=== PATIENT | female | born 1970 | race Caucasian/White ===

== ENCOUNTER 2016-08-05 13:00 | Inpatient (IN) | payer OTHER, MEDICAID ==
[~2016-08-05] VITALS: Ht 162.6 cm; Wt 62.8 kg
[2016-08-05 13:06] VITALS: BP 127/78; PULSE 87; RESP 20; O2SAT 100
--- NOTE | 2016-08-05 13:29 | ED.REPORT ---
HPI-Chest Pain 40 and Over Date of Service Aug 05, 2016 ED Provider: Heron Haynes PA-C Erin is a 45-year-old female with a history of TX, stent placement, diabetes , gastroparesis and chronic pain syndrome who presents to emergency department with left-sided chest pain. She states that the pain began suddenly approximately 15 minutes ago, is stabbing, waxes and wanes, is relieved by rest and does not radiate. She indicates that the pain is behind her left breast, and states is aggravated by taking a deep breath. She has a recent history of a left chest wall contusion approximately 3 weeks ago, which was evaluated at [facility]. She reports that she has been having increasing trouble with her gastroparesis and was in the process of eating of radioactive sandwich for diagnostic imaging When the pain started. She has a history of TX in 2006, and placement of one stent. Current episode does not feel like her previous TX. She reports that she is taking anticoagulants as instructed. She reports it history of L5 neuropathy including leg weakness and numbness that is stable at baseline. Denies cough, active cancer, exogenous oxygen, recent trauma, recent surgery, history of blood clots, leg swelling. Nursing Notes Stated Complaint: CHEST PAIN Chief Complaint: Chest Pain Nursing Notes Reviewed: Yes Allergies: Coded Allergies: Sulfa (Sulfonamide Antibiotics) (Verified Allergy, Unknown, Rash, 08/05/16) codeine (Verified Adverse Reaction, Severe, GI UPSET, 08/05/16) General Time Seen by MD: 13:14 Chief Complaint Chest pain Hx Obtained From: Patient Arrived By: Walk-in Sudden in Onset?: Yes Location: : Substernal Quality: Painful, Pleuritic, Sharp, Stabbing Radiation: : Does not radiate Severity: Current: Moderate Severity: Maximum: Moderate Recent Healthcare: Previous diagnosis Similar Sx Previous: Yes Past Medical History Past Medical History Ischemic cardiomyopathy Gastroparesis, hypertension TX 2007 s/p stent placement diabetes mellitus, Chronic lumbar back pain lower limb neuropathy Osteoarthritis Past Surgical History Cataract Cardiac stenting Smoking History Smoker Current Status UNK Social History Alcohol Use: "Social" Drug Use: THC Ambulatory Status Independent Review of Systems General: Denies fever, chills, malaise. HEENT: Admits congestion, denies headache, sore throat. Respiratory: Admits dyspnea, denies cough, shortness of breath, wheezing. Cardiovascular: Admits chest pain Gastrointestinal: Admits abdominal pain. Denies vomiting, diarrhea Genitourinary: Denies frequency, urgency, dysuria, hematuria. Otherwise as noted in HPI. Complete sys rev & neg: except as marked. Physical Exam General: Mildly ill appearing, well developed, well nourished, moderatel distress. Head: Atraumatic, normocephalic. Eyes: No scleral icterus or injection. No discharge. Vision grossly intact. ENT: Voice clear, hearing grossly intact. Respiratory: Regular rate and rhythm. Breath sounds present, clear to auscultation and equal bilaterally. Cardiovascular: Regular rate and rhythm, without murmur, gallop or rub. No pedal edema. Gastrointestinal: Abdomen flat with mild global tenderness without guarding or rebound. Bowel sounds normoactive. Skin: Warm and dry. Neurological: Grossly nonfocal. Psychological: Alert and oriented. Speech appropriate, linear and logical. Behavior appropriate. Initial Vital Signs Vital Signs (First) Date Time Temp Pulse Resp B/P Pulse Ox O2 Delivery O2 Flow Rate FiO2 08/05/16 13:06 36.4 87 20 127/78 100 Room Air Initial VS: Reviewed, Vital signs normal Interpretation & Diagnostics Lab Results Interpretation Result Diagram: 08/05/16 1342 08/05/16 1342 Test 08/05/16 13:42 White Blood Count 8.4th/mm3 (3.8-10.1) Red Blood Count 3.82mil/mm3 (3.90-5.20) Hemoglobin 11.7g/dL (12.0-15.6) Hematocrit 34.2% (35.0-46.0) Mean Corpuscular Volume 89.5fL (81-100) Mean Corpuscular Hemoglobin 30.6pg (27.0-35.0) Mean Corpuscular Hemoglobin Concent 34.2% (32.0-37.0) Red Cell Distribution Width 12.3% (12.3-15.4) Platelet Count 334bil/L (150-400) Neutrophils (%) (Auto) 64.8% (40-74) Lymphocytes (%) (Auto) 24.6% (14-46) Monocytes (%) (Auto) 5.6% (4-12) Eosinophils (%) (Auto) 4.3% (0-5) Basophils (%) (Auto) 0.6% (0-3) Sodium Level 134mEq/L (134-144) Potassium Level 4.3mEq/L (3.5-5.2) Chloride Level 96mEq/L (97-108) Carbon Dioxide Level 23mmol/L (18-29) Blood Urea Nitrogen 22mg/dL (6-24) Creatinine 1.01mg/dL (0.57-1.00) Estimat Glomerular Filtration Rate 85mL/min (>59) Glucose Level 362mg/dL (60-99) Calcium Level 9.4mg/dL (8.5-10.1) Magnesium Level 2.2mg/dL (1.6-2.6) Total Bilirubin 0.2mg/dL (0.0-1.2) Aspartate Amino Transf (AST/SGOT) 30U/L (0-50) Alanine Aminotransferase (ALT/SGPT) 30U/L (0-32) Alkaline Phosphatase 445U/L (25-150) Troponin T 0.033ug/L (0.0-0.011) Total Protein 7.6g/dL (6.4-8.4) Albumin 3.6g/dL (3.4-5.0) ECG Interpretation ECG Interpretation: Sinus rhythm rate 89 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 Sinus rhythm rate 86 Old inferior and anterior infarcts Time: 15:17 Interpreted by: ED physician Normal ECG Interpretation: No acute ischemic changes, No change from prior ECGs X-Ray Chest Interpretation Chest Xray Interpretation: PROCEDURE: X-RAY CHEST ONE VIEW, PORTABLE ([id number]) INDICATIONS: chest pain IMPRESSION: No acute cardiopulmonary disease process. Interpretation / Wet Read by: Interpret - Radiologist, Interp - P Re-Eval/Medical Decision Time of Eval: 15:00 Re-Evaluation/Progress Note: Patient reports that her pain is worsened. Ordered repeat EKG, nitroglycerin Time of Eval: 15:28 Re-Evaluation/Progress Note: Patient checked by Dr. Stringer at 15:21 after positive troponin and persistent chest pain. Case was discussed in full with YONIS Haynes prior to patient interview. She is still having chest pain. The patient's CP began at 12:30 after a period of indigestion during a test at nuclear medicine. She describes her pain as shooting, sharp, and pleuritic. She c/o associated intermittent lightheadedness. She denies SOB, nausea, melena, bloody stool, recent illness. She has a history of TX in 2006. She is unsure if she is post-menopausal because she was placed on depo. She has a family history of cardiac disease in late life. Physical exam: lungs clear, heart regular rate and rhythm with normal sounds, chest non-tender. Informed pt of need for admission for possible NSTEMI and need for further cardiac workup. She agrees with plan for admit. Time of Eval: 16:05 Re-Evaluation/Progress Note: Pt rechecked. Minimal response to sublingual nitro. Administering Fentanyl. Consultation #1: Referral / Consult Name: Marialuisa Marvin MD Consulted With: Cardiology Call Returned at: 15:36 Resident Services Supervisor: Will see patient, Agrees with eval, Agrees with plan Note: Will consult during admit. Consultation #2: Referral / Consult Name: Candace Clark MD Consulted With: Hospitalist Call Returned at: 15:47 Resident Services Supervisor: Will see patient, Agrees with eval, Agrees with plan, Accepts admit Counseled Regarding: Diagnosis, Lab results, Need for admission Discharge & Departure Primary Impression: NSTEMI (non-ST elevated myocardial infarction) Additional Impression: Chest pain Chest pain type: unspecified Qualified Code: R07.9 - Chest pain, unspecified Disposition: ADMITTED TO HOSPITAL Discharge Condition All VS Reviewed: Yes Condition: Stable Referrals: Lorie Mcpherson MD (PCP) Dieduonne Attestation Portions of this note were transcribed by Chico Sanches. IDr. Stirnger personally performed the history, physical exam and medical decision-making; I reviewed and confirmed the accuracy of the information in the transcribed note. Signed by Dieudonne Arias, 08/05/16 - 1599 copies to: Lorie Mcpherson MD, Seth PA-C Aug 05, 2016 13:29 CHICO SANCHES Aug 05, 2016 15:31
[2016-08-05] MEDS ORDERED: Ondansetron 2 mg/mL 2 mL Inj IVPUSH ONE (13:30)
[2016-08-05 13:45] LABS: BASOPHILS % (AUTO) 0.6 % (0-3); EOSINOPHILS % (AUTO) 4.3 % (0-5); MONOCYTES % (AUTO) 5.6 % (4-12); Mean Corpuscular Hemoglobin 30.6 pg (27.0-35.0); Mean Corpuscular Volume 89.5 fL (81-100); NEUTROPHILS % (AUTO) 64.8 % (40-74); Platelet Count 334 bil/L (150-400)
--- NOTE | 2016-08-05 14:08 | DRSVH ---
PROCEDURE: X-RAY CHEST ONE VIEW, PORTABLE ([id number]) INDICATIONS: chest pain TECHNIQUE: One view of the chest was acquired. COMPARISON: [facility], , CHEST 1VW (PORTABLE), 08/27/2009, 18:10. FINDINGS: Surgical changes and devices: None. Lungs and pleura: No pleural effusions or pneumothorax. Lungs are clear. Mediastinum: Mediastinal contours appear normal. Heart size is normal. Bones and chest wall: No suspicious bony lesions. Overlying soft tissues appear unremarkable. IMPRESSION: No acute cardiopulmonary disease process. Dictated by: Richelle Herrmann MD, PhD on 08/05/2016 at 14:06 Approved by: Richelle Herrmann MD, PhD on 08/05/2016 at 14:07
[2016-08-05 14:19] LABS: TROPONIN T 0.033 ug/L (0.0-0.011)
[2016-08-05 14:31] LABS: Magnesium 2.2 mg/dL (1.6-2.6)
[2016-08-05] MEDS ORDERED: Heparin 5,000 Unit/mL Inj IVPUSH PRN ×2 (15:35→17:05)
[2016-08-05] MEDS ORDERED: Heparin 5,000 Unit/mL Inj IVPUSH ONE (15:35)
[2016-08-05] MEDS ORDERED: Insulin Human REGular-Omnicell 100 Unit/mL SUBQ ONE (15:35)
[2016-08-05] MEDS: Heparin 25K Unit/500mL 0.45 NS 25,000 UNIT in IV Premix 1 EACH IV SCH (15:55)
[2016-08-05] MEDS ORDERED: fentaNYL-PF 50 mCg/mL 2 mL Inj IVPUSH ONE (16:05)
[2016-08-05 16:49] LABS: INR 0.9 ratio
[2016-08-05] MEDS ORDERED: Heparin 25K Unit/500mL 0.45 NS 25,000 UNIT in IV Premix 1 EACH IV SCH (17:05)
[2016-08-05] MEDS ORDERED: Ondansetron 2 mg/mL 2 mL Inj IVPUSH PRN ×2 (17:05→18:25)
[2016-08-05] MEDS ORDERED: Alum-Mag Hydrox-Simeth 30 mL Suspension PO PRN (17:05)
--- NOTE | 2016-08-05 17:14 | PCM.HPMED ---
Subjective Date of Service Aug 05, 2016 Primary Provider: Admitting Physician: Candace Clark MD Primary Care Physician: Lorie Mcpherson MD Attending Physician: Candace Clark MD Chief Complaint: HISTORY was OBTAINED FROM PATIENT / MEDITECH NOTES History of present illness 45-year-old female with coronary [id number],during gastroparesis nuc med study after intake of radiotagged food, she experienced stabbing left chest pain worse with deep breath/cough, better w/ nitroglycerine. Left chest wall bruise 3 weeks ago after falling onto buttocks w/ associated back pain. Pain is unlike prior chest trauma and prior TN pains. no recent concrete products dispatcher visit. In the ER 127/78, room air, heart rate 87, pain 7 out of 10 with second nitroglycerin pill, heparin drip, aspirin, omeprazole, insulin, fentanyl she is hungry Review of Systems - none of the following - F/C/sick contact // LAWTON / sob / cough /acid reflux / n/v/diarrhea / bleeding/bruising /change in voiding / yeast infections / rash --ambulates but w/ back pain - declines treadmill prefers chem stress test --intermittent leg swelling at end of day FAMILY HX CAD DM SOCIAL HX social EtOH, distant marijuana, smoking former MEDICATIONS [place] last Depo-Provera 2 years ago asa daily off clopidorgrel by 2007 due to heavy mensturation see med list imed Past Medical/Surgical HX Chronic pain syndrome/L5 neuropathy/leg weakness and numbness/lumbar back pain/ osteoarthritis Thyroid Sinus congestion Bronchitis Diabetes gastroparesis neuropathy teeth infection pelvic fracture Vitiligo TN ST elevation / stent clopidogrel x 1 year Exam on admission room air NAD A and O x 3 mood affect WNL comfortable in bed ordering dinner NC/AT no icterus no injected eyes EOMI PERRL /no pharyngeal lesions/ no oral lesions / hearing intact Supple neck CTAB equal chest rise / no accessory muscle use / speaks in full sentences / no rrw RRR S1 S2 / no mrg / 2+ radial pulses Soft nt nd + BS no hepatosplenomegaly trace bilateral liu edema no cyanosis no ecchymosis of lower extremities No rash / no jaundice RSOARIO EKG Trop 0.033 BNP pending Creatinine 1.01 procalcitonin lactic acid UA LFT normal Imaging CXR neg acute Active issues and reason for admission Chest pain, treating as non-ST elevation TN with elevated troponin and with prior STEMI history -- Serial troponin, echo, heparin drip, when necessary nitroglycerin drip, morphine, when necessary oxygen, aspirin Dr. Galvan to see the patient in the morning -- consider cardiac cath vs chem stress study in am Normocytic anemia Chronic issues known prior to admission, present on admission DM, slidding scale, hold home meds chronic pain, morphine gastroparesis/neuropathy --trial zofran, side effects w/ reglan Diet diabetic/cardiac DVT prophylaxis heparin gtt Code full Disposition inpt Assessment and plan were discussed with patient Allergies Coded Allergies: Sulfa (Sulfonamide Antibiotics) (Verified Allergy, Unknown, Rash, 08/05/16) codeine (Verified Adverse Reaction, Severe, GI UPSET, 08/05/16) PMH Social History Hx Alcohol Use: Yes ([employer] SOCIAL DRINK 1-2XYEARLY) Hx Substance Use: Yes (REMOTE HX IN TEENS MARIJUANA USE) Hx Tobacco Use: Yes Smoking Status: Smoker Current Status UNK Exam Vital Signs Vital Sign - Last Date Time Temp Pulse Resp B/P Pulse Ox O2 Delivery O2 Flow Rate FiO2 08/05/16 13:06 36.4 87 20 127/78 100 Room Air Lab and Diagnostics Result Diagram: 08/05/16 1342 08/05/16 1342 Candace Clark MD Aug 05, 2016 17:14
[2016-08-05 17:25] VITALS: PULSE 89
[2016-08-05 17:41] LABS: Creatine Kinase 87 U/L (21-215)
[2016-08-05 17:45] VITALS: BP 165/82; PULSE 87; RESP 18; O2SAT 99
--- NOTE | 2016-08-05 18:00 | NUR ---
Admit Pt arrived to floor around 1700. Able to stand on scale, transfer to bed. Then up to bathroom with FWW. Pt reports a recent broken hip and use of FWW at home. Pt states she was at a test today to evaluate her gastroparesis. She was eating a "radioactive sandwich" when she started to have chest pain. States pain is worse with deep breaths and nitro was not effective. Currently resting in bed w/ heparin drip infusing as ordered. No further complaints.
[2016-08-05] MEDS ORDERED: LEVO25TA5 PO (18:04)
[2016-08-05] MEDS ORDERED: CITA20TA PO (18:04)
[2016-08-05] MEDS ORDERED: OXYC-465 PO (18:04)
[2016-08-05] MEDS ORDERED: DOCU250C2 PO (18:05)
[2016-08-05] MEDS ORDERED: CYAN10008 PO (18:06)
[2016-08-05] MEDS ORDERED: NITR0.4T SL (18:06)
[2016-08-05] MEDS ORDERED: FLUT10.62 IH (18:07)
[2016-08-05] MEDS ORDERED: LOSA25TA2 PO (18:07)
[2016-08-05] MEDS ORDERED: ALBU8.5H2 INHALATION (18:08)
[2016-08-05] MEDS ORDERED: ATOR80TA77 PO (18:08)
[2016-08-05] MEDS ORDERED: POLY17PO6 PO (18:09)
[2016-08-05] MEDS ORDERED: CARV6.252 PO (18:09)
[2016-08-05] MEDS ORDERED: INSU100C8 SUBQ (18:10)
[2016-08-05] MEDS ORDERED: INSU100V7 SUBQ (18:10)
[2016-08-05] MEDS ORDERED: CHOL200025 PO (18:11)
[2016-08-05] MEDS ORDERED: ASPI-973 PO (18:12)
[2016-08-05] MEDS ORDERED: LEVO200T6 PO (18:12)
[2016-08-05] MEDS ORDERED: Polyethylene Glycol (PEG) 17 Gm Powder PO PRN (18:20)
[2016-08-05] MEDS ORDERED: Glucose 40% Oral Gel 15 Gm Tube PO PRN (18:20)
[2016-08-05] MEDS ORDERED: Albuterol-Ipratropium 3 mL Inhalation Solution NEB PRN (18:20)
[2016-08-05] MEDS ORDERED: Pantoprazole 20 mg ER24 Tablet PO ONE (18:25)
[2016-08-05] MEDS ORDERED: Nitroglycerin 2% 1 Gm Ointment TOPICAL SCH (18:30)
--- NOTE | 2016-08-05 18:31 | PCM.HPMED ---
Subjective Date of Service Aug 05, 2016 Primary Provider: Admitting Physician: Candace Clark MD Primary Care Physician: Lorie Mcpherson MD Attending Physician: Candace Clark MD Chief Complaint: HISTORY was OBTAINED FROM PATIENT / MEDITECH NOTES History of present illness 45-year-old female with coronary [id number],during gastroparesis nuc med study after intake of radiotagged food, she experienced stabbing left chest pain worse with deep breath/cough, better w/ nitroglycerine. Left chest wall bruise 3 weeks ago after falling onto buttocks w/ associated back pain. Pain is unlike prior chest trauma and prior [place] pains. no recent telephone engineer visit. In the ER 127/78, room air, heart rate 87, pain 7 out of 10 with second nitroglycerin pill, heparin drip, aspirin, omeprazole, insulin, fentanyl she is hungry Review of Systems - none of the following - F/C/sick contact // LAWTON / sob / cough /acid reflux / n/v/diarrhea / bleeding/bruising /change in voiding / yeast infections / rash --ambulates but w/ back pain - declines treadmill prefers chem stress test --intermittent leg swelling at end of day FAMILY HX CAD DM SOCIAL HX social EtOH, distant marijuana, smoking former MEDICATIONS [place] last Depo-Provera 2 years ago asa daily off clopidorgrel by 2007 due to heavy mensturation see med list imed Past Medical/Surgical HX HTN Chronic pain syndrome/L5 neuropathy/leg weakness and numbness/lumbar back pain/ osteoarthritis Thyroid Sinus congestion Bronchitis Diabetes gastroparesis neuropathy teeth infection pelvic fracture/rib fracture from cough Vitiligo DE ST elevation / stent clopidogrel x 1 year Exam on admission room air NAD A and O x 3 mood affect WNL comfortable in bed ordering dinner NC/AT no icterus no injected eyes EOMI PERRL /no pharyngeal lesions/ no oral lesions / hearing intact Supple neck CTAB equal chest rise / no accessory muscle use / speaks in full sentences / no rrw RRR S1 S2 / no mrg / 2+ radial pulses Soft nt nd + BS no hepatosplenomegaly trace bilateral liu edema no cyanosis no ecchymosis of lower extremities No rash / no jaundice ROSARIO EKG Trop 0.033 BNP pending Creatinine 1.01 procalcitonin lactic acid UA LFT normal Imaging CXR neg acute Active issues and reason for admission Chest pain, treating as non-ST elevation DE with elevated troponin and with prior STEMI history, better w/ nitro/worse w/ deep breathing, comfortable appearing -- Serial troponin, echo, heparin drip, when necessary nitroglycerin paste, morphine, when necessary oxygen, aspirin Dr. Galvan to see the patient in the morning -- consider cardiac cath vs chem stress study in am -- consider musculoskeletal/pleuritic - no recent trauma/no signs of URI Normocytic anemia --monitor, pending TSH Chronic issues known prior to admission, present on admission DM, 1/2 home lantus dose, sliding scale chronic pain, morphine/norco gastroparesis/neuropathy --trial zofran, side effects w/ reglan HTN/hypothyroidism --resume home med Diet diabetic/cardiac DVT prophylaxis heparin gtt Code full Disposition inpt Assessment and plan were discussed with patient Allergies Coded Allergies: Sulfa (Sulfonamide Antibiotics) (Verified Allergy, Unknown, Rash, 08/05/16) codeine (Verified Adverse Reaction, Severe, GI UPSET, 08/05/16) PMH Social History Hx Alcohol Use: No Hx Substance Use: No Hx Tobacco Use: Yes Smoking Status: Smoker Current Status UNK Exam Vital Signs Vital Sign - Last Date Time Temp Pulse Resp B/P Pulse Ox O2 Delivery O2 Flow Rate FiO2 08/05/16 17:45 35.9 87 18 165/82 99 Room Air Lab and Diagnostics Result Diagram: 08/05/16 1342 08/05/16 1342 Candace Clark MD Aug 05, 2016 18:31
[2016-08-05] MEDS: oxyCODONE-Acetamin 5-325 mg Tablet PO PRN (19:42)
[2016-08-05] MEDS ORDERED: Fluticasone HFA 44 mCg 120 Puff 10.6 Gm Inhaler INHALATION SCH (20:30)
[2016-08-05] MEDS: Insulin GLARgine 100 Unit/mL Syringe SUBQ SCH (21:22)
[2016-08-05] MEDS: Insulin LISPRO 300 Unit/3 mL Inj SUBQ SCH (21:22)
[2016-08-05] MEDS: Fluticasone 100 mCg Inhaler INHALATION SCH (21:28)
[2016-08-05 21:40] VITALS: BP 136/80; PULSE 83; RESP 18; O2SAT 99
[2016-08-05 22:40] LABS: Creatine Kinase 65 U/L (21-215)
--- NOTE | 2016-08-05 23:04 | NUR ---
Pain Pt c/o ongoing CP of a six unrelieved by nitro paste. Given 2mg IV morphine to treat chest pain. Pt had immediate relief and stated, "Now I will be able to sleep" Appears comfortable. Care ongoing
[2016-08-06] VITALS (8 sets, daily range): BP systolic 111–162; BP diastolic 58–83; PULSE 75–84; RESP 18; O2SAT 96–99
[2016-08-06] MEDS: Sodium Chloride LOK Flush 10 mL Syringe IVFLUSH SCH ×3 (00:30→16:26)
[2016-08-06] MEDS: oxyCODONE-Acetamin 5-325 mg Tablet PO PRN ×4 (01:41→21:45)
[2016-08-06 03:08] LABS: BASOPHILS % (AUTO) 0.7 % (0-3); EOSINOPHILS % (AUTO) 5.8 % (0-5); Mean Corpuscular Hemoglobin 30.7 pg (27.0-35.0); Mean Corpuscular Volume 90.1 fL (81-100); NEUTROPHILS % (AUTO) 47.7 % (40-74); Platelet Count 287 bil/L (150-400)
[2016-08-06] MEDS: Pantoprazole 20 mg ER24 Tablet PO SCH (07:41)
[2016-08-06] MEDS: Fluticasone 100 mCg Inhaler INHALATION SCH ×2 (08:40→19:58)
[2016-08-06] MEDS: Insulin LISPRO 300 Unit/3 mL Inj SUBQ SCH ×4 (08:40→21:24)
--- NOTE | 2016-08-06 11:16 | NUR ---
Social Work: Screening / Readiness for d/c Data: Pt is a 45 y/o female admitted for n stemi. Pt's PCP is Dr Mcpherson, pt's insurance is coordinated care blind/disabled. EMR reviewed. Pt discussed in rounds. MD states pt likely ready for d/c today or tomorrow. No d/c planning needs anticipated at this time. INTELLIGENCE RESEARCH SPECIALIST will continue to follow if needs arise. Assessment: Pt who is independent at baseline. Plan: Pt will d/c home via POV when medically stable. MD states pt likely ready for d/c today or tomorrow. No d/c planning needs anticipated at this time. INTELLIGENCE RESEARCH SPECIALIST will continue to follow if needs arise. RAMYA Noriega
[2016-08-06] MEDS: 0.9% Sodium Chloride 1,000 ML IV SCH (15:37)
--- NOTE | 2016-08-06 15:39 | PCM.PNMED ---
Subjective Date of Service Aug 06, 2016 Subjective Overnight, constant dull pain Left side chest pain. very focal, "it hurts under my ribs". Worst when she breath in. She states nitro decrease pain by 1 point after 1-2min. Denies any lightheadedness, dizziness. Exam Vital Signs Vital Sign - Last Date Time Temp Pulse Resp B/P Pulse Ox O2 Delivery O2 Flow Rate FiO2 08/06/16 09:18 36.8 84 18 145/70 99 Room Air Intake and Output 08/05/16 08/05/16 08/06/16 Cumulative From/Thru 15:00 23:00 07:00 08/05/16 13:06 - 08/06/16 06:01 Intake Total 120 ml 210 ml 330 ml Balance 120 ml 210 ml 330 ml Intake Oral 120 ml 120 ml IV Total 210 ml 210 ml Exam Gen: Lying comfortably at 30degree head tilt HEENT: PERRLA, Anicteric sclerae, moist conjunctivae, and no lid lag. Neck: supple, no JVD Cardio: Regular rate and rhythm with no murmurs, rubs, or gallops appreciated. tenderness at rib 6/7, chest pain reproducible with palpation. Pulm: b/l air sound, no crackles, wheezes, or rhonchi. Normal respiratory effort with no use of accessory muscles. Abd: positive bowel tone. Soft, nontender, nondistended. Extremities: No clubbing, cyanosis, edema, or lymphadenopathy appreciated. Skin: Normal temperature, turgor, and texture; no rash, ulcers, or subcutaneous nodules appreciated. Neuro: Cranial nerves grossly intact. moving equally on all four limbs. Psyc: Normal mood and affect. AoX3 IVs and Medications IV Fluids NS 80cc/hr Medications Reviewed: Medications were reviewed in detail Lab and Diagnostics Result Diagram: 08/06/16 0305 08/06/16 0305 Assessment & Plan Patient is a 45yof with MHx significant for diabetes with associated gastroparesis, CAD s/p stent at 34yo, and chronic lower back pain, pelvic fracture present with atypical chest pain, admitted for ACS r/o. ACS,present on admission, active -- Activated NSTEMI protocol based on risk factors-poorly controlled DM, MA at 34yo,atypical chest pain, and elevated trops -- Though, elevated troponin are flat, CK/CKmb wnl, CP reproducible, and Echo () showing EF40-45% with wall motion abnormalities essentially unchanged, no R heart strain. -- This argues against cardiogenic chest pain and likely muscle skeletal. -- Cardiology has been consulted nevertheless due to her risks. Possible stress testing vs cardiovascular intervention -- Started heparin drip, morphine, oxygen, nitro, and aspirin, in addition to carvedilol and losartan -- NPO at midnight, cont heparin drip pending cardiology. Will hydrate her with NS 60cc/hr Chronic Heart failure with reduced EF, present on admission, active -- EF 40-45% on echo -- Will cont Jose-I, betablockade, and atorvastatin Dyslipidemia, present on admission, active -- AHA risk of 14.4% chance of stroke in 10yrs. -- Initiated high intensity statin -- LFT ordered Chronic/stable Diabetes type II, insulin dependent: lantus 10u HS, Lispro per sliding scale/ A1c Pending Hypothyroidis: cont home levothyroxine Hypertension: cont home losartan, carvedilol, and Anxiety/depression: cont citalopram chronic pain syndrome: Cont home Percocet 10-325mg GI Prophylaxis: Proton Pump Inhibitor VTE Mechanical Devices: Intermittant Pneumatic CD Time spent 30 minutes Attending Statement I have seen and evaluated patient at bedside, in addition to directly supervising care provided by resident physician. I agree with above documentation. Will continue observation, awaiting cardiology recommendations for further possible evaluation or procedural intervention (cath). Stuart Peterson DO Aug 06, 2016 10:44 Javan Escalona DO Aug 06, 2016 18:41
--- NOTE | 2016-08-06 16:05 | NUR ---
took over care at 3pm
[2016-08-06] MEDS: Heparin 25K Unit/500mL 0.45 NS 25,000 UNIT in IV Premix 1 EACH IV SCH (18:38)
[2016-08-06] MEDS: Insulin GLARgine 100 Unit/mL Syringe SUBQ SCH (21:25)
[2016-08-07] VITALS (8 sets, daily range): BP systolic 107–157; BP diastolic 60–77; PULSE 76–83; RESP 16–18; O2SAT 95–98
[2016-08-07] MEDS: Sodium Chloride LOK Flush 10 mL Syringe IVFLUSH SCH ×3 (00:30→15:43)
--- NOTE | 2016-08-07 06:37 | NUR ---
Chest Pain Pt c/o left chest pain 6-8/10,worse with ambulation or deep breathing.Pain does "not completely go away" since admission. denies n/v/diaphoresis,also c/o chronic back pain. Stat EKG done at late pm,report: SR old IA.Tele: SR 70S-80S, no atopy, no ST-T changes per electrical power station technician. Nitroglycerin SL x2 at late pm, chest pain not improve, Percocet and Morphine given alternatively, chest pain reduce to 4/10, tolerable. Night Resident Noe paged at [phone], no order given. Heparin drip running, in goalx1,current rate 975 units/hr. No active bleeding noted. VSS, afebrile. Pt kept NPO after MN, no caffeine, for possible stress test today.
[2016-08-07] MEDS: Insulin LISPRO 300 Unit/3 mL Inj SUBQ SCH ×4 (08:00→20:34)
[2016-08-07] MEDS: Pantoprazole 20 mg ER24 Tablet PO SCH (09:11)
[2016-08-07] MEDS: Fluticasone 100 mCg Inhaler INHALATION SCH ×2 (09:13→20:32)
[2016-08-07] MEDS: 0.9% Sodium Chloride 1,000 ML IV SCH (09:35)
--- NOTE | 2016-08-07 10:30 | NUR ---
Pain/Off Unit: Patient transported to [facility] @ approx 1030 via wheelchair accompanied by DEN horton and student RN. technical business systems analyst notified. Patient complained of left lateral chest pain 7/10 on pain scale. Morphine 2mg administered prior to transport to [facility]. Addendum: 08/07/16 at 1219 by SAIDA MOSS RN Patient continues to be off unit. Unable to reassess for pain.
--- NOTE | 2016-08-07 13:56 | PCM.PNMED ---
Subjective Date of Service Aug 07, 2016 Subjective 45-year-old female with coronary [id number],during gastroparesis nuc med study after intake of radiotagged food, she experienced stabbing left chest pain worse with deep breath/cough, better w/ nitroglycerine. Left chest wall bruise 3 weeks ago after falling onto buttocks w/ associated back pain. Pain is unlike prior chest trauma and prior OR pains. no recent slot router visit. Overnight patient had some reproducible left sided chest pain again. This resolved with IV opiate medications. She reports this morning that the pain is right over where she had a left rib fracture a few weeks ago. She is otherwise CP free this morning and tolerating a PO diet. She reports chronic back problems and leg pain so she was unable to do the ETT yesterday. SHe is planned for a Pharmacological Stress test today instead. Exam Vital Signs Vital Sign - Last Date Time Temp Pulse Resp B/P Pulse Ox O2 Delivery O2 Flow Rate FiO2 08/07/16 06:06 76 08/07/16 05:29 36.8 18 136/74 96 Room Air Intake and Output 08/06/16 08/06/16 08/07/16 Cumulative From/Thru 15:00 23:00 07:00 08/05/16 13:06 - 08/07/16 05:30 Intake Total 350 ml 818 ml 839 ml 2337 ml Output Total 250 ml 250 ml Balance 350 ml 568 ml 839 ml 2087 ml Intake Oral 350 ml 400 ml 870 ml IV Total 418 ml 839 ml 1467 ml Output Urine Total 250 ml 250 ml # Voids 1 1 # Bowel Movements 1 1 Exam Gen: Well developed female in NAD HEENT: PERRLA, Anicteric sclerae Neck: supple, no JVD Cardio: Regular rate and rhythm with no murmurs, rubs, or gallops appreciated. tenderness at rib 6/7, chest pain reproducible with palpation. Pulm: b/l air sound, no crackles, wheezes, or rhonchi. Normal respiratory effort with no use of accessory muscles. Abd: positive bowel tone. Soft, nontender, nondistended. Extremities: No clubbing, cyanosis, edema, or lymphadenopathy appreciated. Skin: Normal temperature, turgor, and texture; no rash, ulcers, or subcutaneous nodules appreciated. Neuro: Cranial nerves grossly intact. moving equally on all four limbs. Psyc: Normal mood and affect. AoX3 IVs and Medications Medications Reviewed: Medications were reviewed in detail Lab and Diagnostics Result Diagram: 08/06/16 0300 08/07/16 1761 Assessment & Plan Patient is a 45yof with MHx significant for diabetes with associated gastroparesis, CAD s/p stent at 34yo, and chronic lower back pain, pelvic fracture present with atypical chest pain, admitted for ACS r/o. ACS,present on admission, active -- Activated NSTEMI protocol based on risk factors-poorly controlled DM, OR at 34yo,atypical chest pain, and elevated trops -- Though, elevated troponin are flat, CK/CKmb wnl, CP reproducible, and Echo () showing EF40-45% with wall motion abnormalities essentially unchanged, no R heart strain. -- This argues against cardiogenic chest pain and likely muscle skeletal. -- Cardiology has been consulted nevertheless due to her risks. -- Started heparin drip, morphine, oxygen, nitro, and aspirin, in addition to carvedilol and losartan -- NPO at midnight, cont heparin drip pending cardiology. -- WIll have pharm stress test today. Chronic Heart failure with reduced EF, present on admission, active -- EF 40-45% on echo -- Will cont Jose-I, betablockade, and atorvastatin Dyslipidemia, present on admission, active -- AHA risk of 14.4% chance of stroke in 10yrs. -- Initiated high intensity statin -- LFT ordered Hypothyroidism, POA Fairly uncontrolled with TSH of 93.68 here Will continue to titrate her Levothyroxine upwards. Normocytic Anemia, POA Uncertain of etiology, possibly due to chronic disease. H&H stable, continue to monitor [place] as outpatient Chronic/stable Diabetes type II, insulin dependent, poa --lantus 10u HS, Lispro per sliding scale/ A1c Pending Hypertension, poa --cont home losartan, carvedilol Anxiety/depression, poa --cont citalopram chronic pain syndrome: Cont home Percocet 10-325mg prn Pain Evaluation: Adequate Pain Control GI Prophylaxis: Proton Pump Inhibitor VTE Mechanical Devices: Intermittant Pneumatic CD Resuscitation Status: CPR: Attempt Resuscitation Attending Statement I have seen and evaluated Mrs. Fontana at her bedside today. In addition I have directly supervised the care provided by the resident physician. I agree with the above documentation as it accurately reflects my own examination, assessment and plans. She had several questions and misgivings which I attempted to explain and understand. Her hypothyroidism has been actively managed by Dr. Mcpherson with a recent dose increase. Her TSH remains quite elevated at 93.6 despite the recent dose increase. Michael San M.D., DO Aug 07, 2016 07:26 Juan Branch MD Aug 07, 2016 14:40
[2016-08-07] MEDS: oxyCODONE-Acetamin 5-325 mg Tablet PO PRN ×2 (14:30→20:32)
--- NOTE | 2016-08-07 15:10 | NUR ---
Social Work: Readiness for d/c Data: Pt is on day 2 of hospitalization. EMR reviewed, pt discussed in rounds. MD states pt likely to d/c either today or tomorrow. No d/c planning needs anticipated. PERSONNEL COORDINATOR will continue to follow if needs arise. Assessment: Pt who is independent at baseline. Plan: Pt will d/c home via POV when medically stable, likely today or tomorrow. No d/c planning needs anticipated. PERSONNEL COORDINATOR will continue to follow if needs arise. RAMYA Noriega
--- NOTE | 2016-08-07 17:39 | NUR ---
Lantus insulin pt is concerned about not receiving morning lantus insulin and rising blood glucose levels. Primary RN discussed with pt and seeks further instruction from provider.
[2016-08-07] MEDS: Insulin GLARgine 100 Unit/mL Syringe SUBQ SCH (20:35)
[2016-08-07] MEDS: Heparin 25K Unit/500mL 0.45 NS 25,000 UNIT in IV Premix 1 EACH IV SCH (20:53)
[2016-08-08] VITALS (7 sets, daily range): BP systolic 113–159; BP diastolic 64–83; PULSE 77–84; RESP 18–20; O2SAT 95–98
[2016-08-08] MEDS: Sodium Chloride LOK Flush 10 mL Syringe IVFLUSH SCH ×3 (00:30→16:30)
[2016-08-08] MEDS: oxyCODONE-Acetamin 5-325 mg Tablet PO PRN ×3 (03:24→13:04)
--- NOTE | 2016-08-08 05:46 | NUR ---
Chest Pain Pt still c/o left chest pain 6-01/10,but similar to that in previous days, increase with activities and cough or deep breathing, sharp,or dull, sometimes throbbing, pain does not completely go away, lowest 10/11, with chronic back pain, denies symptoms of SOB/N/V/diaphoresis, likely chest pain is muscular/skeletal (recent left rib fx) related per MD note and day shift nurse report of communication with MD. Percocet given x2 per pt requests, pt sleeping pretty well most of night. VSS. Tele: SR 70S, no ectopy per lab support technician. Heparin drip running, lab called for PTT blood drawl. No active bleeding noted. 2nd part of stress test scheduled today. Pt informed and kept NPO after MN except sips water for pain med at 0316, no caffeine consumed.
[2016-08-08 06:31] LABS: BASOPHILS % (AUTO) 0.4 % (0-3); EOSINOPHILS % (AUTO) 5.9 % (0-5); MONOCYTES % (AUTO) 6.9 % (4-12); Mean Corpuscular Hemoglobin 29.8 pg (27.0-35.0); NEUTROPHILS % (AUTO) 52.5 % (40-74); Platelet Count 236 bil/L (150-400)
[2016-08-08] MEDS: Fluticasone 100 mCg Inhaler INHALATION SCH (08:43)
[2016-08-08] MEDS: Pantoprazole 20 mg ER24 Tablet PO SCH (08:44)
[2016-08-08] MEDS: Insulin LISPRO 300 Unit/3 mL Inj SUBQ SCH ×3 (08:45→17:00)
--- NOTE | 2016-08-08 09:04 | NUR ---
Off Unit: Patient transported to [place] via wheelchair accompanied by [place] Tech @ approx 0900. isotope technologist notified. Percocet administered prior to transfer for c/o continual chest discomfort 6/10 on pain scale.
[2016-08-08 09:24] LABS: Bilirubin, Direct 0.2 mg/dL (0.0-0.3)
--- NOTE | 2016-08-08 15:22 | NUR ---
Heparin gtt: Heparin infusing @ 975u/hr. 0620 Heparin PTT 59.0. Heparin infusion increased by 25units to 1000u/hr. 1100 repeat Heparin PTT 61.6. No change in infusion, remains at 1000u/hr. Next Heparin PTT scheduled @ 1700.
--- NOTE | 2016-08-08 16:05 | DRSVH ---
PROCEDURE: 1 DAY PHARMACOLOGICAL STRESS TEST INDICATIONS: chest pain COMPARISON: None. Radiopharmaceutical: Rest dose 19.1 mCi of technetium 99 tetrofosmin Stress dose 21.4 mCi of technetium 99 tetrofosmin Indication for procedure: Patient is a 45-year-old woman with diabetes, hypertension, hyperlipidemia, history of LAD stenting in 2006 and strong family history of coronary disease. Patient presents with chest pain. FINDINGS: Pharmacologic stress test: Following informed consent Lexiscan was infused per protocol. Patient deve loped hypotension and nausea. She received Aminophyllin 100 mg IV and blood pressure recovered. Even before Lexiscan she experienced 3/10 chest pain. It got worse during the stress test and returned b ack to baseline in recovery. There were no significant ST segment changes or ectopy. Raw data: Normal myocardial tracer uptake. Lung heart ratio is grossly normal. Myocardial perfusion imaging: There is a large size severe intensity fixed apical and distal anterior perfusion defect. There is no reversibility present. This finding is consistent with completed infar ct. Quantitative gated SPECT: At peak stress ejection fraction is 55%. Rest ejection fraction is 53%. T.i .d. calculates to 1.2. There is apical and distal anterior akinesis consistent with completed infarct . IMPRESSION: Large size severe intensity fixed apical and distal anterior perfusion defect. This finding is consis tent with completed infarct. Preserved left ventricular systolic function with focal wall motion abnormalities in LAD distribution . Compared to prior study performed July 15, 2009 no changes have occurred. Dictated by: Laverne Huitron M.D. on 08/08/2016 at 15:54 Approved by: Laverne Huitron M.D. on 08/08/2016 at 16:03
--- NOTE | 2016-08-08 16:54 | PCM.DIMED ---
Discharge Instructions Date of Service Aug 08, 2016 Dates of Hospitalization Aug 05, 2016 at 16:28 Discharge Diagnosis Discharge Diagnosis ACS,present on admission, stable Chronic Heart failure with reduced EF, present on admission, ongoing Dyslipidemia, present on admission, ongoing Hypothyroidism, present on admission, ongoing Normocytic Anemia, present on admission, stable Diabetes type II, insulin dependent, present on admission, ongoing Hypertension, present on admission, stable Anxiety/depression, present on admission, stable Patient Instructions For your hospitalization, you were admitted for chest pain. Given your risk factors, we did a complete work up which included echocardiogram and Nuclear stress testing. These test have been assuring. You do not have a heart attach. Additionally, Chest Xray imaging does not suggest any lung pathologies. Most likely, your focal left sided chest pain are due to musculoskeletal, perhaps costochondritis. --Over the counter, NSAIDS would be effective. On others, we noted several labs that will need to be followed up as outpatient. 1. Diabetes, A1c 11.5, continue your current insulin regiment, however, see your primary care provider for further ideas to decrease your A1C 2. Thyroid hormone are low. We have increased your levothyroxine to 275mcg daily. You will need a thyroid panel within a week by your primary doctor 3. Alkaline phosphatase enzyme elevate, this likely due to a liver pathology. GGT is another liver test that will help us diagnose this. The results are pending. Please have your PCP call in for results. Follow-up Provider: Lorie Mcpherson MD Follow-up with PCP in: 1 week Stuart Peterson DO Aug 08, 2016 16:15
[2016-08-08] MEDS ORDERED: LEVO75TA4 PO (16:58)
--- NOTE | 2016-08-08 18:45 | NUR ---
Discharge: Patient discharged to home @ approx 1840. IV d/c'd intact, telemetry removed, radiation monitor notified. Personal belongings sent home with patient, including personal walker. Reviewed new prescription, d/c instructions, home medication list, and follow up appointments. Verbalized understanding. Patient escorted to main entrance via wheelchair accompanied by this RN.
--- NOTE | 2016-08-08 20:33 | PCM.DC.MED ---
Discharge Summary Date of Service Aug 08, 2016 Dates of Hospitalization Date of Hospital Admission Aug 05, 2016 at 16:28 Date of Discharge: Aug 08, 2016 Providers: Admitting Physician: Candace Clark MD Primary Care Physician: Lorie Mcpherson MD Attending Physician: Candace Clark MD Diagnosis at Time of Discharge Diagnosis at Time of Discharge ACS,present on admission, stable Chronic Heart failure with reduced EF, present on admission, ongoing Dyslipidemia, present on admission, ongoing Hypothyroidism, present on admission, ongoing Normocytic Anemia, present on admission, stable Diabetes type II, insulin dependent, present on admission, ongoing Hypertension, present on admission, stable Anxiety/depression, present on admission, stable Brief History History of present illness 45-year-old female with coronary [id number],during gastroparesis nuc med study after intake of radiotagged food, she experienced stabbing left chest pain worse with deep breath/cough, better w/ nitroglycerine. Left chest wall bruise 3 weeks ago after falling onto buttocks w/ associated back pain. Pain is unlike prior chest trauma and prior NC pains. no recent tobacco dipper visit. In the ER 127/78, room air, heart rate 87, pain 7 out of 10 with second nitroglycerin pill, heparin drip, aspirin, omeprazole, insulin, fentanyl Hospital Course Patient is a 45yof with MHx significant for diabetes with associated gastroparesis, CAD s/p stent at 34yo, and chronic lower back pain, pelvic fracture present with atypical chest pain, admitted for ACS r/o. Troponin CK-MB , echocardiogram, nuclear stress testing unremarkable. Patient likely has underlining costochondritis or other musculoskeletal strain. I recommended her ibuprofen to blunt focal chest pain ACS,present on admission, active -- Activated NSTEMI protocol based on risk factors-poorly controlled DM, NC at 34yo,atypical chest pain, and elevated trops -- Though, elevated troponin are flat, CK/CKmb wnl, CP reproducible, and Echo () showing EF40-45% with wall motion abnormalities essentially unchanged, no R heart strain. -- This argues against cardiogenic chest pain and likely muscle skeletal. -- Cardiology has been consulted nevertheless due to her risks. -- Started heparin drip, morphine, oxygen, nitro, and aspirin, in addition to carvedilol and losartan -- Heparin drip discontinuing echocardiogram unremarkable compared to prior. -- Patient was discharged home as stress testing unremarkable Chronic Heart failure with reduced EF, present on admission, active -- EF 40-45% on echo -- Will cont Jose-I, betablockade, and atorvastatin Dyslipidemia, present on admission, active -- AHA risk of 14.4% chance of stroke in 10yrs. -- Initiated high intensity statin -- LFT unremarkable except for alkaline phosphate. 273 -- GGT still pending at discharge, recommend follow-up Hypothyroidism, POA Fairly uncontrolled with TSH of 93.68 here Level thyroxine titrated upward, at discharge levothyroxin 275 mg daily Normocytic Anemia, POA Uncertain of etiology, possibly due to chronic disease. H&H stable, continue to monitor [place] as outpatient Chronic/stable Diabetes type II, insulin dependent, poa --lantus 10u HS, Lispro per sliding scale/ A1c 11.5 -- Suggested lifestyle modification including low carbohydrate diet. Patient resistant to advice Hypertension, poa --cont home losartan, carvedilol Anxiety/depression, poa --cont citalopram chronic pain syndrome: Cont home Percocet 10-325mg prn Exam Vital Signs (Last) Date Time Temp Pulse Resp B/P Pulse Ox O2 Delivery O2 Flow Rate FiO2 08/08/16 17:15 37.7 77 18 136/78 98 Room Air Test 08/05/16 13:42 08/05/16 21:32 08/06/16 03:05 08/06/16 07:40 Prothrombin Time 9.6sec (8.1-12.5) Prothromb Time International Ratio 0.90ratio Magnesium Level 2.2mg/dL (1.6-2.6) Total Creatine Kinase 65U/L (21-215) Creatine Kinase MB 3.1ng/mL (0.0-5.3) Creatine Kinase MB % % (0.0-5.0) Hemoglobin A1c 11.5% (4.8-5.6) Triglycerides Level 111mg/dL (0-149) Cholesterol Level 239mg/dL (100-199) LDL Cholesterol, Calculated 159.800mg/dL (0-99) VLDL Cholesterol 22.200mg/dL HDL Cholesterol 57mg/dL (>39) Cholesterol/HDL Ratio 4.19 (0.0-4.4) Troponin T 0.033ug/L (0.0-0.011) Test 08/07/16 03:35 08/08/16 06:20 08/08/16 11:20 Thyroid Stimulating Hormone (TSH) 93.680uIU/mL (0.450-4.500) Free Thyroxine 0.68ng/dL (0.82-1.77) White Blood Count 6.8th/mm3 (3.8-10.1) Red Blood Count 3.39mil/mm3 (3.90-5.20) Hemoglobin 10.1g/dL (12.0-15.6) Hematocrit 30.5% (35.0-46.0) Mean Corpuscular Volume 90.0fL (81-100) Mean Corpuscular Hemoglobin 29.8pg (27.0-35.0) Mean Corpuscular Hemoglobin Concent 33.1% (32.0-37.0) Red Cell Distribution Width 12.2% (12.3-15.4) Platelet Count 236bil/L (150-400) Neutrophils (%) (Auto) 52.5% (40-74) Lymphocytes (%) (Auto) 34.2% (14-46) Monocytes (%) (Auto) 6.9% (4-12) Eosinophils (%) (Auto) 5.9% (0-5) Basophils (%) (Auto) 0.4% (0-3) Sodium Level 134mEq/L (134-144) Potassium Level 4.6mEq/L (3.5-5.2) Chloride Level 100mEq/L (97-108) Carbon Dioxide Level 23mmol/L (18-29) Blood Urea Nitrogen 20mg/dL (6-24) Creatinine 0.85mg/dL (0.57-1.00) Estimat Glomerular Filtration Rate 103mL/min (>59) Glucose Level 261mg/dL (60-99) Calcium Level 8.3mg/dL (8.5-10.1) Total Bilirubin 0.2mg/dL (0.0-1.2) Direct Bilirubin 0.2mg/dL (0.0-0.3) Aspartate Amino Transf (AST/SGOT) 32U/L (0-50) Alanine Aminotransferase (ALT/SGPT) 22U/L (0-32) Alkaline Phosphatase 327U/L (25-150) Total Protein 5.6g/dL (6.4-8.4) Albumin 2.8g/dL (3.4-5.0) Activated Partial Thromboplast Time 61.6sec (22.8-33.0) Discharge Medications Discharge Medications Aspirin (Aspirin) 81 Mg Tablet 81 MG PO DAILY (Reported) Carvedilol (Carvedilol) 6.25 Mg Tablet 6.25 MG PO BID (Reported) Citalopram Hydrobromide (Celexa) 20 Mg Tablet 20 MG PO HS (Reported) Cyanocobalamin (Vitamin B-12) (Vitamin B-12) 1,000 Mcg Tablet 1,000 MCG PO DAILY (Reported) Fluticasone Propionate (Flovent HFA 44 mcg) 10.6 Gm Aer.w.adap 2 PUFFS IH BID ( Reported) Insulin Aspart (NovoLOG U100 Insulin Vial) 100 U/Ml U 5 UNIT SUBQ TID (Reported ) Insulin Glargine (Lantus U100 Insulin Vial) 100 Unit/Ml Vial 10 UNIT SUBQ BID ( Reported) Levothyroxine (Levothyroxine) 200 Mcg Tablet 200 MCG PO DAILY (Reported) Levothyroxine (Levothyroxine) 75 Mcg Tablet 75 MCG PO DAILYAC Prescribed by: MARCELO PETERSON DO Losartan Potassium (Cozaar) 25 Mg Tablet 25 MG PO DAILY (Reported) As needed Albuterol HFA (Proair HFA) 8.5 Gm Hfa.aer.ad 2 PUFFS INHALATION Q6H PRN PRN For Shortness of Breath (Reported) Docusate Sodium (Docusate Sodium) 250 Mg Capsule 250 MG PO BID PRN PRN For Constipation (Reported) Nitroglycerin SL (Nitrostat) 0.4 Mg Tab.subl 0.4 MG SL Q5MIN PRN PRN For Chest Pain (Reported) Polyethylene Glycol 3350 (Miralax) 17 Gm Powd.pack 17 GM PO DAILY PRN PRN For Constipation (Reported) oxyCODONE-Acetaminophen 7.5-325 mg (oxyCODONE-Acetaminophen 7.5-325 mg) 1 Each Tablet 1 TAB PO TID PRN PRN For Pain (Reported) Followup Plan Patient Instructions For your hospitalization, you were admitted for chest pain. Given your risk factors, we did a complete work up which included echocardiogram and Nuclear stress testing. These test have been assuring. You do not have a heart attach. Additionally, Chest Xray imaging does not suggest any lung pathologies. Most likely, your focal left sided chest pain are due to musculoskeletal, perhaps costochondritis. --Over the counter, NSAIDS would be effective. On others, we noted several labs that will need to be followed up as outpatient. 1. Diabetes, A1c 11.5, continue your current insulin regiment, however, see your primary care provider for further ideas to decrease your A1C 2. Thyroid hormone are low. We have increased your levothyroxine to 275mcg daily. You will need a thyroid panel within a week by your primary doctor 3. Alkaline phosphatase enzyme elevate, this likely due to a liver pathology. GGT is another liver test that will help us diagnose this. The results are pending. Please have your PCP call in for results. Follow-up Provider: Lorie Mcpherson MD Follow-up with PCP in: 1 week Attending Statement I saw Ms. Fontana today with Dr. Peterson. On my exam her heart was RRR without murmur, the lungs were clear and there was no ankle edema. She was quite upset about the ups and downs of hospital care, perceived delays and confusion in her diagnostic process and the way her home medicines were altered during the admission. She appears to be significantly depressed in the way she discusses these issues. I returned to talk to her before the final discharge to make sure her questions had been answered and to apologize for misunderstandings and frustrations that accumulated during her hospital stay. She seemed to not be thinking about those issues any more. Obinna Branch MD copies to: Lorie Mcpherson MD,Marcelo H DO Aug 08, 2016 20:33 Juan Branch MD Aug 08, 2016 21:01
== END 2016-08-08 18:38 | disposition home or self-care (01) | DRG 198 ==
LOC: SED 13:00 → MPC 16:28
PROVIDERS: ADMIT Urology; ATTEND Urology
DX: R07.89 Other chest pain (principal); I25.2 Old myocardial infarction; I50.9 Heart failure, unspecified; Z98.61 Coronary angioplasty status; Z87.891 Personal history of nicotine dependence; E11.9 Type 2 diabetes mellitus without complications; E78.5 Hyperlipidemia, unspecified; E03.9 Hypothyroidism, unspecified; I10 Essential (primary) hypertension; F41.9 Anxiety disorder, unspecified; F32.9 Major depressive disorder, single episode, unspecified; G89.4 Chronic pain syndrome; Z79.82 Long term (current) use of aspirin

== ENCOUNTER 2016-08-15 07:23 | Emergency (ER) | payer MEDICAID, OTHER ==
[~2016-08-15] VITALS: Ht 162.6 cm; Wt 61.8 kg
[~2016-08-15 07:23] MED LIST: ALBU8.5H2 INHALATION; ASPI-973 PO; CARV6.252 PO; CITA20TA PO; CYAN10008 PO; DOCU250C2 PO; FLUT10.62 IH; INSU100C8 SUBQ; INSU100V7 SUBQ; LEVO200T6 PO; LEVO75TA4 PO; LOSA25TA2 PO; NITR0.4T SL; OXYC-465 PO; POLY17PO6 PO
[2016-08-15 07:26] VITALS: BP 133/90; PULSE 50; RESP 22
--- NOTE | 2016-08-15 07:41 | ED.REPORT ---
HPI-Back Pain 40 and Over Date of Service Aug 15, 2016 ED Provider: Jonathna Slaughter MD 45 year old diabetic female with a history of chronic back pain, and stenosis in L5 presents to the ER complaining of acute on chronic back pain aggravated by a fall "several weeks ago", worsening markedly today. She states that the pain is primarily in her thoracic and lumbar spine, but radiates into her buttocks. Pain has a dull component that is constant, with intermittent sharp pain. Symptoms are exacerbated by bending and twisting. Patient denies bowel or urinary incontinence, fever, and chills. She was seen here in the ER for the complaint of chest pain following her recent fall, at which time she was admitted for a full cardiac workup that yielded negative results. She takes Percocet regularly for chronic pain. Nursing Notes Stated Complaint: BACK PAIN Chief Complaint: Back Pain or Injury Nursing Notes Reviewed: Yes Allergies: Coded Allergies: Sulfa (Sulfonamide Antibiotics) (Verified Allergy, Unknown, Rash, 08/15/16) codeine (Verified Adverse Reaction, Severe, GI UPSET, 08/15/16) Scheduled Aspirin (Aspirin) 81 Mg Tablet 81 MG PO DAILY Carvedilol (Carvedilol) 6.25 Mg Tablet 6.25 MG PO BID Citalopram Hydrobromide (Celexa) 20 Mg Tablet 20 MG PO HS Cyanocobalamin (Vitamin B-12) (Vitamin B-12) 1,000 Mcg Tablet 1,000 MCG PO DAILY Fluticasone Propionate (Flovent HFA 44 mcg) 10.6 Gm Aer.w.adap 2 PUFFS IH BID Insulin Aspart (NovoLOG U100 Insulin Vial) 100 U/Ml U 5 UNIT SUBQ TID Insulin Glargine (Lantus U100 Insulin Vial) 100 Unit/Ml Vial 10 UNIT SUBQ BID Levothyroxine (Levothyroxine) 200 Mcg Tablet 200 MCG PO DAILY Levothyroxine (Levothyroxine) 75 Mcg Tablet 75 MCG PO DAILYAC Lidocaine (Lidoderm) 700 Mg Adh..patch 1 PATCH TP UD Losartan Potassium (Cozaar) 25 Mg Tablet 25 MG PO DAILY Scheduled PRN Albuterol HFA (Proair HFA) 8.5 Gm Hfa.aer.ad 2 PUFFS INHALATION Q6H PRN PRN For Shortness of Breath Docusate Sodium (Docusate Sodium) 250 Mg Capsule 250 MG PO BID PRN PRN For Constipation Nitroglycerin SL (Nitrostat) 0.4 Mg Tab.subl 0.4 MG SL Q5MIN PRN PRN For Chest Pain Polyethylene Glycol 3350 (Miralax) 17 Gm Powd.pack 17 GM PO DAILY PRN PRN For Constipation oxyCODONE-Acetaminophen 7.5-325 mg (oxyCODONE-Acetaminophen 7.5-325 mg) 1 Each Tablet 1 TAB PO TID PRN PRN For Pain General Time Seen by MD: 07:32 Chief Complaint Back pain Hx Obtained From: Patient Arrived By: Walk-in Sudden in Onset?: No Onset Occurred: More than a week ago... ("several weeks") Symptom Duration: Since onset Caused by: Aggravated old injury, Chronic Injury Location: : Spinal lumbar area: Spinal thoracic area Quality: Aching, Dull, Painful, Sharp Severity: Current: Moderate Severity: Maximum: Moderate Associated with: Denies: Fever, Incontinence bladder, Incontinence bowel Exacerbated by: Bending, Movement, Twisting Pertinent Negative: Relieved by nothing Similar Sx Previous: Yes Past Medical History Past Medical History Ischemic cardiomyopathy Gastroparesis, hypertension [place] 2006 s/p stent placement diabetes mellitus, Chronic lumbar back pain lower limb neuropathy Osteoarthritis Past Surgical History Cataract Cardiac stenting Smoking History Smoker Current Status UNK Social History Alcohol Use: "Social" Drug Use: THC Ambulatory Status Independent Review of Systems Constitutional: Denies: Chills, Fever Cardiovascular: Denies: Chest pain GI: Denies: Nausea, Vomiting Musculoskeletal: Reports: Back pain, Lumbar pain, Denies: Extremity pain, Joint pain, Thoracic pain Neurologic: Denies: Bladder dysfunction, Bowel dysfunction, Focal weakness, Headache, Numbness, Weakness Complete sys rev & neg: except as marked. Physical Exam Initial Vital Signs Vital Signs (First) Date Time Temp Pulse Resp B/P Pulse Ox O2 Delivery O2 Flow Rate FiO2 08/15/16 07:26 36.3 50 22 133/90 Initial VS: Reviewed Head / Eyes: Atraumatic, Normocephalic Neck: Supple, Non-tender, Full range of motion Extremities: Vascular intact, Neuro intact, No swelling, No tenderness General/Constitutional: Awake, Alert, Well developed, Well nourished Respiratory / Chest: Breath sounds NL, Breath sounds = bilat, No respiratory distress, No rales, No rhonchi, No wheezing Cardiovascular: Heart rate NL, Regular rhythm, Heart sounds NL, No murmurs, Peripheral circulation NL Abdomen: Soft, Non-tender, No guarding, No rebound, No distention, No palpable mass, No pulsatile mass Back: Atraumatic, Full range of motion, No CVA tenderness Flank / Spine / Paraspinal: Positive: Lumbar paraspinal tend..., Thorac paraspinal tend... No stepoffs or bony deformities. Neurologic: Oriented X3, Speech NL, No motor deficits Strength 5/5 of the bilateral upper and lower extremities. Diminished sensation in the distal bilateral lower extremities that she reports is chronic secondary to underlying peripheral neuropathy. Interpretation & Diagnostics ECG Interpretation ECG Interpretation: Sinus rhythm, rate 88 Left axis deviation Borderline ST depression <1mm v4-v6 No ST segment elevation Inferior Q waves Anteroseptal Q waves When compared to ECG 08/06/2016 no acute changes present. Time: 08:07 Interpreted by: ED physician Re-Eval/Medical Decision Med Decision/Clinical Course In summary, the patient is a 45-year-old female with past medical history significant for chronic back pain, opiate dependence, coronary artery disease/ prior MD, who presents with back pain for the last 2 weeks that is exacerbated with movement/pending/twisting it has been worse since sustaining a ground- level fall. Upon arrival the patient is afebrile stable vital signs examination with reproducible back pain with palpation about the thoracolumbar paraspinal region. INA report provided as below: 07/22/2016 filled prescription for Percocet, 90 tablets 06/20/2016 filled prescription for Percocet, 90 tablets Multiple additional prescriptions for oxycodone and hydromorphone has been filled in the past 12 months Presentation not suggestive of acute coronary syndrome however given her presentation and history I did obtain an EKG as interpreted by myself and documented above demonstrated no evidence of acute cardiac ischemic process. Given her recent extensive workup and nature of her presentation today I do not feel that further immediate cardiac workup is indicated. Primary and secondary assessment reveals an awake, alert patient in no acute distress. Hemodynamically stable and afebrile. Exam reveals normal neurologic exam of the lower extremities. Given this immunocompetent, afebrile, patient's history and exam, suspect muscle strain or spasm. No concerning signs or symptoms suggestive of cauda equina, cord compression, epidural abscess or other neurologic emergency. History not suggestive of referred intraabdominal pathology or vascular emergency. There is no history of significant trauma, fever, incontinence, unexplained weight loss, cancer history, long-term steroid use or IV drug use. And given the patient's young age, I do not feel imaging is warranted at this time. Given the patient's workup, feel they are safe for discharge with conservative management. The patient was treated with intramuscular Toradol/Lidoderm patch here in the emergency department. She received mild improvement in her symptoms and was provided with an ice pack and prescription for Lidoderm patches. Given the large quantity of opiate pain medication that she is taking I am not comfortable prescribing narcotic pain medications to this patient. I have discussed with the patient results of workup, indications for return including: motor weakness in the lower extremities and/or bowel or bladder incontinence. Also emphasized the need for PCP follow up. They understand and agree with the plan. Source of Hx: Old records Re-Evaluation/Progress #1: Time of Eval: 08:02 Re-Evaluation/Progress Note: Discussed physical examination findings and plan to discharge. Patient is amenable to the plan. Return precautions given. All other questions addressed. Re-Evaluation/Progress #2: Time of Eval: 08:50 Re-Evaluation/Progress Note: Verbal discharge instructions given. Counseled Regarding: Diagnosis, Need for follow-up, When/why to return to ED Discharge & Departure Impression: Primary Impression: Chronic back pain Back pain location: low back pain Back pain laterality: left Sciatica presence: without sciatica Qualified Code: M54.5 - Low back pain Additional Impressions: Opiate dependence Substance use status: with unspecified opioid-induced disorder Qualified Code : F11.29 - Opioid dependence with unspecified opioid-induced disorder History of MD (myocardial infarction) History of coronary artery disease Fall from ground level Disposition: Home Discharge Condition All VS Reviewed: Yes Condition: Stable Additional Instructions: Thank you for seeking care at emergency room. It is difficult for us to make definitive diagnoses in the ED but we believe that you are experiencing chronic back pain. Our primary goal today in the ED was to evaluate you for any life-threatening conditions. Your evaluation was reassuring. You should follow-up with your primary doctor this week about a referral to physical therapy. Stretch, take ibuprofen as directed. Apply ice packs. Use lidocaine patches 12 hours on, 12 hours off. You should return to the ED immediately if you develop worsening pain, numbness/ tingling, incontinence, fever, chills, or or any other concerning signs or symptoms. Thank you for letting us partake in your care today. Referrals: Lorie Mcpherson MD (PCP) [facility] Attestation Portions of this note were transcribed by Amanda Bella. I, Dr. Slaughter, personally performed the history, physical exam and medical decision-making; I reviewed and confirmed the accuracy of the information in the transcribed note. Signed by: Dieudonne Sandoval, 08/15/2016 and 08:51 copies to: Lorie Mcpherson MD, Beck O MD Aug 15, 2016 07:41 AMANDA BELLA Aug 15, 2016 07:55
[2016-08-15] MEDS ORDERED: LIDO700A6 TP (08:03)
[2016-08-15] MEDS ORDERED: Lidocaine Topical 5% Patch TOPICAL SCH (08:50)
== END 2016-08-15 10:30 | disposition home or self-care (01) ==
LOC: SED 07:23
DX: M54.5 Low back pain (principal); G89.29 Other chronic pain; W18.30XA Fall on same level, unspecified, initial encounter; Y92.9 Unspecified place or not applicable; Y93.89 Activity, other specified; Y99.8 Other external cause status; F11.29 Opioid dependence with unspecified opioid-induced disorder; I25.2 Old myocardial infarction; I25.10 Atherosclerotic heart disease of native coronary artery without angina pectoris; E11.43 Type 2 diabetes mellitus with diabetic autonomic (poly)neuropathy; I10 Essential (primary) hypertension; Z86.69 Personal history of other diseases of the nervous system and sense organs; Z79.82 Long term (current) use of aspirin; Z88.2 Allergy status to sulfonamides; Z88.5 Allergy status to narcotic agent

== ENCOUNTER 2016-11-08 12:08 | Emergency (ER) | payer OTHER ==
[~2016-11-08] VITALS: Ht 162.6 cm; Wt 61.4 kg
[~2016-11-08 12:08] MED LIST changes: +LIDO700A6 TP
[2016-11-08 12:21] VITALS: BP 108/67; PULSE 96; RESP 18; O2SAT 100
[2016-11-08] MEDS ORDERED: INSU100C8 SUBQ (17:14)
--- NOTE | 2016-11-08 17:44 | ED.REPORT ---
HPI-Back Pain 40 and Over Date of Service November 08, 2016 ED Provider: Elie Rhodes PAC History of Present Illness: 46yo female with long hx. of chronic back pain, fell earlier today landing on low back and contusing occiput. No LOC. She has marked difficulty ambulating at baseline due to back pain. Pain is worse tonight, but denies any change in neuro function. Nursing Notes Stated Complaint: GLF,BACK/HEAD PAIN Chief Complaint: Back Pain or Injury Nursing Notes Reviewed: Yes Allergies: Coded Allergies: Sulfa (Sulfonamide Antibiotics) (Verified Allergy, Unknown, Rash, 08/15/16) codeine (Verified Adverse Reaction, Severe, GI UPSET, 08/15/16) Scheduled Aspirin (Aspirin) 81 Mg Tablet 81 MG PO DAILY Carvedilol (Carvedilol) 6.25 Mg Tablet 6.25 MG PO BID Cyanocobalamin (Vitamin B-12) (Vitamin B-12) 1,000 Mcg Tablet 1,000 MCG PO DAILY Fluticasone Propionate (Flovent HFA 44 mcg) 10.6 Gm Aer.w.adap 2 PUFFS IH BID Insulin Aspart (NovoLOG U100 Insulin Vial) 100 U/Ml U 5 UNIT SUBQ TIDWM Insulin Aspart (NovoLOG U100 Insulin Vial) 100 U/Ml U 1-5 UNIT SUBQ TIDWM Sliding scale based on carb count Insulin Glargine (Lantus U100 Insulin Vial) 100 Unit/Ml Vial 12 UNIT SUBQ BID Levothyroxine (Levothyroxine) 200 Mcg Tablet 200 MCG PO DAILY Levothyroxine (Levothyroxine) 75 Mcg Tablet 75 MCG PO DAILYAC Lidocaine (Lidoderm) 700 Mg Adh..patch 1 PATCH TP UD Losartan Potassium (Cozaar) 25 Mg Tablet 25 MG PO DAILY Scheduled PRN Albuterol HFA (Proair HFA) 8.5 Gm Hfa.aer.ad 2 PUFFS INHALATION Q6H PRN PRN For Shortness of Breath Docusate Sodium (Docusate Sodium) 250 Mg Capsule 250 MG PO BID PRN PRN For Constipation Nitroglycerin SL (Nitrostat) 0.4 Mg Tab.subl 0.4 MG SL Q5MIN PRN PRN For Chest Pain Polyethylene Glycol 3350 (Miralax) 17 Gm Powd.pack 17 GM PO DAILY PRN PRN For Constipation oxyCODONE-Acetaminophen 7.5-325 mg (oxyCODONE-Acetaminophen 7.5-325 mg) 1 Each Tablet 1 TAB PO TID PRN PRN For Pain General Time Seen by MD: 17:30 Chief Complaint Back pain Hx Obtained From: Patient Arrived By: Wheelchair Sudden in Onset?: Yes Onset Occurred: 1 - 4 hours ago Caused by: Blunt trauma, Fall Location: : Spinal lumbar area Radiation: : Does not radiate Severity: Current: Severe Severity: Maximum: Severe Recent Healthcare: Recent doctor visit Similar Sx Previous: Yes Risk Factors )( AAA Risk Stratification Risk factors reviewed )( TAD Risk Stratification Risk factors reviewed Epidural Hematoma Risk Stratif No risk factors Epidural Abscess Risk Stratifi Diabetes mellitus Past Medical History Past Medical History Ischemic cardiomyopathy Gastroparesis, hypertension [place] 2006 s/p stent placement diabetes mellitus, Chronic lumbar back pain lower limb neuropathy Osteoarthritis Past Surgical History Cataract Cardiac stenting Smoking History Smoker Current Status UNK Social History Alcohol Use: "Social" Drug Use: THC Ambulatory Status Independent Review of Systems Constitutional: Denies: Chills, Fever Respiratory: Denies: Shortness of breath Cardiovascular: Denies: Chest pain GI: Denies: Abdominal pain Musculoskeletal: Reports: Back pain, Denies: Neck pain Neurologic: Denies: Change LOC, Dizziness, Focal weakness, Headache, Vision change Complete sys rev & neg: except as marked. Physical Exam Initial Vital Signs Vital Signs (First) Date Time Temp Pulse Resp B/P Pulse Ox O2 Delivery O2 Flow Rate FiO2 11/08/16 12:21 36.4 96 18 108/67 100 Room Air Initial VS: Vital signs normal General/Constitutional: Awake, Alert Distress / Hydration: Positive: Distress moderate Appearance / Presentation: Positive: Frail, In pain Respiratory / Chest: Breath sounds NL, Breath sounds = bilat, No respiratory distress Cardiovascular: Heart rate NL, Regular rhythm, Heart sounds NL Abdomen: Soft, Non-tender Neurologic: Oriented X3, Speech NL, No sensory deficits, Reflexes equal bilat Focal Weakness: Negative: Lower extremity L, Lower extremity R Gait Abnormality: Positive: Antalgic gait, Walks with assistance pedal strength 5/5 Neck: Supple, No meningismus, Full range of motion, No swelling, Non-tender Interpretation & Diagnostics Lab Results Interpretation Result Diagram: 11/08/16 1820 Test 11/08/16 18:20 11/08/16 19:45 Hold Purple Top Tube Received (Received) Hold Blue Top Tube Received (Received) Sodium Level 129mEq/L (134-144) Potassium Level 4.4mEq/L (3.5-5.2) Chloride Level 91mEq/L (97-108) Carbon Dioxide Level 22mmol/L (18-29) Blood Urea Nitrogen 25mg/dL (6-24) Creatinine 1.26mg/dL (0.57-1.00) Estimat Glomerular Filtration Rate 65mL/min (>59) Glucose Level 450mg/dL (60-99) Calcium Level 9.7mg/dL (8.5-10.1) Hold [place] Top Tube Received (Received) X-Ray Interpretation Xray Interpretation: PROCEDURE: CT LUMBAR SPINE WITHOUT CONTRAST ([id number]) INDICATIONS: trauma/pain TECHNIQUE: Noncontrast 3 mm thick sections acquired from the T12 level to the sacrum. Sagittal and coronal reformats were constructed. For radiation dose reduction, the following was used: automated exposure control. COMPARISON: None. FINDINGS: Image quality: Excellent. There is a fracture within the superior endplate of the L1 vertebral body, appearing to extend into the proximal third of the vertebral body. There is a slight depression of the superior endplate. Remaining vertebral bodies appear intact. There is multilevel trace retrolisthesis of the lumbar spine. Minimal disc bulges are present at L2-3 mild, L3-4, L4-5 and L5-S1. There is mild to moderate spinal stenosis at L2-3, L3-4, severe L4-5. No retroperitoneal masses or hematomas. Visualized aorta is normal in caliber. IMPRESSION: 1. Nondisplaced L1 vertebral fracture extending from the superior end plate of the proximal third of the vertebral body. 2. Degenerative changes as noted above. Dictated by: Allie Carlson M.D. on 11/08/2016 at 19:02 Approved by: Allie Carlson M.D. on 11/08/2016 at 19:06 Re-Eval/Medical Decision Med Decision/Clinical Course Pt's seen by Dr. Davis who concurs with plan to CT scan lumbar spine. IDDM improved in ED with fluids and regular insulin. Glucose down from 425 on arrival to 342. Not acidotic. Counseled Regarding: Diagnosis, Lab results, Need for follow-up, When/why to return to ED Discharge & Departure Shift Change Sign-Out Response to Therapy: Improved Impression: Primary Impression: Vertebral fracture, closed Encounter type: initial encounter Fracture of vertebra location: lumbar Lumbar vertebra fracture level: L1 Fracture morphology: unspecified fracture morphology Qualified Code: S32.019A - Unspecified fracture of first lumbar vertebra, initial encounter for closed fracture Additional Impression: Diabetes Diabetes mellitus type: type 1 Diabetes mellitus complication status: with hyperglycemia Qualified Code: E10.65 - Type 1 diabetes mellitus with hyperglycemia Disposition: Home Patient Instructions: Vertebral Compression Fracture (GEN), Acute Low Back Pain (ED) Additional Instructions: Rest, local heat, take pain meds sparingly as needed. Follow up with ortho for back fracture, follow up with your PCP regarding diabetes control. Return to ER if anything worsens Referrals: Lorie Mcpherson MD (PCP) 1 Day [facility] 2-3 days follow up on L1 fracture EDSupervising Provider for APC: Brandan Davis MD, Christopher R PAC November 08, 2016 17:43
[2016-11-08] MEDS ORDERED: 0.9% Sodium Chloride 1,000 ML IV ONE ×2 (17:50→19:40)
[2016-11-08] MEDS ORDERED: Insulin Human REGular-Omnicell 100 Unit/mL IV ONE ×2 (17:50→19:40)
[2016-11-08] MEDS ORDERED: HYDROmorphone 1 mg/mL Inj IVPUSH ONE (17:50)
--- NOTE | 2016-11-08 19:08 | DRSVH ---
PROCEDURE: CT LUMBAR SPINE WITHOUT CONTRAST ([id number]) INDICATIONS: trauma/pain TECHNIQUE: Noncontrast 3 mm thick sections acquired from the T12 level to the sacrum. Sagittal and coronal refo rmats were constructed. For radiation dose reduction, the following was used: automated exposure co ntrol. COMPARISON: None. FINDINGS: Image quality: Excellent. There is a fracture within the superior endplate of the L1 vertebral body, appearing to extend into t he proximal third of the vertebral body. There is a slight depression of the superior endplate. Remai sasha vertebral bodies appear intact. There is multilevel trace retrolisthesis of the lumbar spine. Minimal disc bulges are present at L2-3 mild, L3-4, L4-5 and L5-S1. There is mild to moderate spinal stenosis at L2-3, L3-4, severe L4-5. No retroperitoneal masses or hematomas. Visualized aorta is normal in caliber. IMPRESSION: 1. Nondisplaced L1 vertebral fracture extending from the superior end plate of the proximal third of the vertebral body. 2. Degenerative changes as noted above. Dictated by: Allie Carlson M.D. on 11/08/2016 at 19:02 Approved by: Allie Carlson M.D. on 11/08/2016 at 19:06
[2016-11-08] MEDS ORDERED: oxyCODONE-Acetamin 5-325 mg Tablet PO ONE (20:25)
[2016-11-08] MEDS ORDERED: HYDR-4003 PO (20:59)
[2016-11-08 21:34] VITALS: BP 144/86; PULSE 86; O2SAT 100
== END 2016-11-08 21:36 | disposition home or self-care (01) ==
LOC: SED 12:08
DX: S32.018A Other fracture of first lumbar vertebra, initial encounter for closed fracture (principal); W18.30XA Fall on same level, unspecified, initial encounter; W22.8XXA Striking against or struck by other objects, initial encounter; Y92.002 Bathroom of unspecified non-institutional (private) residence as the place of occurrence of the external cause; Y93.89 Activity, other specified; Y99.8 Other external cause status; E10.65 Type 1 diabetes mellitus with hyperglycemia; E10.43 Type 1 diabetes mellitus with diabetic autonomic (poly)neuropathy; I10 Essential (primary) hypertension; I25.2 Old myocardial infarction; I25.5 Ischemic cardiomyopathy; M54.5 Low back pain; G89.29 Other chronic pain; M19.90 Unspecified osteoarthritis, unspecified site; Z87.891 Personal history of nicotine dependence; Z95.818 Presence of other cardiac implants and grafts; Z79.82 Long term (current) use of aspirin; Z79.4 Long term (current) use of insulin; Z88.5 Allergy status to narcotic agent; Z88.2 Allergy status to sulfonamides
CPT/HCPCS: 36415; 72131; 80048; 82948; 96361; 96374; 96375; 96376; 99285; J1170; J1815; J7030

== ENCOUNTER → 2017-01-25 | Day surgery (SDC) | payer OTHER ==
[~2017-01-25] VITALS: Ht 157.5 cm; Wt 61.2 kg
[~2017-01-25] MED LIST changes: +ATOR80TA PO; +CHOL200025 PO; +Insulin Human REGular 300 Unit/3 mL Inj SUBQ ONE; +Insulin Human REGular-Omnicell 100 Unit/mL ONE; -LEVO75TA4 PO; -LIDO700A6 TP; +Lactated Ringer's 1,000 ML IV ONE; +Lactated Ringer's 1,000 ML IV SCH; +MetoCLOpramide 5 mg/mL 2 mL Inj IVPUSH PRN; -OXYC-465 PO; +Ondansetron 2 mg/mL 2 mL Inj IVPUSH PRN
[2017-01-25 14:41] VITALS: BP 141/80; PULSE 83; O2SAT 99
--- NOTE | 2017-01-25 15:12 | PCM.HPANE ---
Patient Data Surgeon Admitting Provider: Attending Provider:Cristhian Hurd MD Primary Care Physician:Lorie Mcpherson MD Other Provider:[facility] Reason for Visit Altered Bowel Hab/Non Intractable Vominting Ht/WT & BMI Height (Feet): 5 Height (Inches): 2 Weight (Kilograms): 61.24 Body Mass Index 24.00 Allergies Coded Allergies: Sulfa (Sulfonamide Antibiotics) (Verified Allergy, Unknown, Rash, 08/15/16) sulfabenzamide (Verified Allergy, Unknown, 01/24/17) codeine (Verified Adverse Reaction, Severe, GI UPSET, 08/15/16) Past Anesthesia History Anesthesia History: Denies:: Abnormal Airway, Anesthesia Reactions, Difficult Intubation, Fam Anesthesia Reaction, Fam Malignant Hypertherm, Malignant Hyperthermia Diabetes History Hx Diabetes?: Yes MRSA MRSA: No Medications Blood Thinner: Aspirin Last Dose Blood Thinner: Jan 25, 2017 Home Meds Incl Beta Bean: No Reported Medications Atorvastatin (Lipitor)80 Mg Yrrjux44 Mg PO DAILY Ref 0 01/24/17 Cholecalciferol (Vitamin D3) (Vitamin D3)2,000 Unit Tablet2,000 Unit PO DAILY 01/24/17 Aspirin 81 Mg Douumh43 Mg PO DAILY 08/05/16 Levothyroxine 200 Mcg Pemgry204 Mcg PO DAILY 08/05/16 Insulin Glargine (Lantus U100 Insulin Vial)100 Unit/Ml Vial12 Unit SUBQ BID 08/05/16 Insulin Aspart (NovoLOG U100 Insulin Vial)100 U/Ml U5 Unit SUBQ TIDWM 08/05/16 Carvedilol 6.25 Mg Tablet6.25 Mg PO BID 08/05/16 Polyethylene Glycol 3350 (Miralax)17 Gm Powd.pack17 Gm PO DAILY PRN For Constipation 08/05/16 Albuterol HFA (Proair HFA)8.5 Gm Hfa.aer.ad2 Puffs INHALATION Q6H PRN For Shortness of Breath 08/05/16 Fluticasone Propionate (Flovent HFA 44 mcg)10.6 Gm Aer.w.adap2 Puffs IH BID 08/05/16 Losartan Potassium (Cozaar)25 Mg Htsgxb19 Mg PO DAILY 08/05/16 Nitroglycerin SL (Nitrostat)0.4 Mg Tab.subl0.4 Mg SL Q5MIN PRN For Chest Pain 08/05/16 Cyanocobalamin (Vitamin B-12) (Vitamin B-12)1,000 Mcg Tablet1,000 Mcg PO DAILY 08/05/16 Docusate Sodium 250 Mg Syqurgy103 Mg PO BID PRN For Constipation 08/05/16 Discontinued Reported Medications Citalopram Hydrobromide (Celexa)20 Mg Xknhsl89 Mg PO DAILY Ref 0 01/24/17 Insulin Aspart (NovoLOG U100 Insulin Vial)100 U/Ml U1-5 Unit SUBQ TIDWM Sliding scale based on carb count 11/08/16 oxyCODONE-Acetaminophen 7.5-325 mg 1 Each Tablet1 Tab PO TID PRN For Pain 08/05/16 Discontinued Scripts Hydrocodone-Acetaminophen 5-325 mg 1 Each Tablet1 Tablet PO QID PRN For Pain # 20 TABLET Ref 0 Prov:Elie Rhodes 11/08/16 Lidocaine (Lidoderm)700 Mg Adh..patch1 Patch TP UD #10 PATCH Ref 0 Prov:Jonathan Slaughter MD 08/15/16 Levothyroxine 75 Mcg Nzovqi36 Mcg PO DAILYAC 14 Days Prov:Stuart Peterson DO 08/08/16 History History of ENT Problems?: No HEENT History: Positive for:: Cataracts Dysphagia Sinus Problem (at times stuffy nose. current cold) Denies:: Abnormal Airway Difficult Intubation Hearing Problem Denture Type: Partial- Upper Teeth Condition: Broken Teeth Missing Teeth Hx of Heart Problems?: Yes Cardiovascular History: Positive for:: Chest Pain (With heart attack in 2006) Hypertension (Related to anxiety) Denies:: AICD Atrial Fibrillation Cardiac Surgery Congestive Heart Failure Edema Heart Murmur Irregular Heartbeat Pacemaker Thrombophlebitis Valvular Heart Disease Hx of Respiratory Problem?: Yes Respiratory History: Denies:: Asthma COPD Chest Surgery Dyspnea Emphysema Hemoptysis Pneumonia Tuberculosis Hx Neurologic Problems?: Yes Neurological History: Denies:: Alzheimer's Disease CVA Dementia Dizziness Headaches Parkinson's Disease Seizures Hx of GI Problems?: Yes Hx of Problems?: No Female Hx: Denies:: Currently Endometriosis Pelvic Inflammatory Problems with Breasts? Hx Musculoskeletal Problems?: Yes Musculoskeletal History: Positive for:: Back Injury (spinal stenosis) Musculoskeletal Trauma (Broken pelvis last april from fall) Denies:: Fibromyalgia Joint Replacement Hx of Psycho/Social Problems?: Yes Psycho Social History: Positive for:: Anxiety Hx Depression Denies:: Bipolar Disorder Suicide Attempt Hx Surgeries?: Yes (Cardiac stent 2007, detached retinal repair) Hx Any Other Health Problems?: Yes Other History: Positive for:: Endocrine Disease Hospitalization (Hip fracture) Thyroid Disease (Hypothyroidism) Denies:: Cancer History Blood Transfusions: Positive for:: Blood Transfusions Denies:: Blood Transfuse Reaction Hx Diabetes: Yes Hx Alcohol Use: Yes (INFREQ)Hx Substance Use: No Smoking Status: Former Smoker Have You Smoked inLast 12 mo: No Stop/Bang Treated for Sleep Apnea?: No Do You Have a CPAP Machine?: No S-Snoring: Do You Snore Loudly: No T-Tired: feel tired, fatigued: Yes O-Obsered: Observed not breath: No P-Blood Pressure: treated: Yes B- Body Mass Index > 35 kg/m2: Yes A- Age over 50: No N- Neck Large Circumference: No G- Gender Male: No ANANYA Total Score: 3 ANANYA Risk Assessment: Low Risk, <3 Yes ANANYA Category 2: Yes Risk Assessment Category Category 1A: Patient has history of documented sleep apnea, and HAS NOT received any narcotic, sedative or anesthesia administration during this stay. Category 1B: Patient has history of documented sleep apnea, and HAS received any narcotic , sedative or anesthesia administration during this stay Category 2: Patient has SUSPECTED Obstructive Sleep Apnea, and HAS received any narcotic , sedative or anesthesia administration during this stay. Category 3: Patient has SUSPECTED Obstructive Sleep Apnea and HAS NOT received narcotic, sedative or anesthesia administration during this stay. Category 4: Outpatient in Procedural Areas with known sleep apnea or who screen positive for High Risk via the STOP/BANG questionnaire. Exam Exam Vital Signs Vital Signs Date Time Temp Pulse Resp B/P Pulse Ox O2 Delivery O2 Flow Rate FiO2 01/25/17 14:41 83 141/80 99 Room Air General Appearance: Oriented X3 HEENT/AIRWAY: MP 2 Lungs: Normal Air Movement Heart: Regular Rate/Rhythm Plan Impression Patient chart reviewed, patient interviewed and anesthestic plan with risks, benefits, and alternatives discussed, and informed consent obtained. ASA Physical Status: ASA3 Severe Disease Anesthetic Plan: MAC Bene/Risks/Altern/Consents: Yes HP Complete Prior to Induction: Yes Rhett Alan MD Jan 25, 2017 15:12
[2017-01-25 15:59] VITALS: BP 121/69; PULSE 78; RESP 12; O2SAT 98
[2017-01-25 16:19] VITALS: BP 142/74; PULSE 82; RESP 14; O2SAT 99
--- NOTE | 2017-01-25 16:46 | ENDO ---
[address] [address] ENDOSCOPY PROCEDURE PATIENT: RUPERTO CADE : 1970 MR#: [id number] ADMIT: 01/25/2017 JOB ID: [id number] DATE OF SERVICE: 01/25/2017 PRIMARY PROVIDER: Lorie Mcpherson MD PROCEDURE: Esophagogastroduodenoscopy with snare deployment for mechanical destruction of a food bezoar. We additionally did flexible sigmoidoscopy to 45 cm. INDICATIONS: A 46-year-old female with longstanding diabetes, chronic opiate use, chronic constipation, and in essence severe intermittent obstipation resulting in erratic stools, intermittent nausea, vomiting. EGD and colonoscopy were planned for further evaluation. The patient did not have any significant output with the mechanical bowel prep. This induced quite a bit of nausea and bloating. EQUIPMENT: [id number]-180J. SEDATION: Monitored anesthesia as provided by Dr. Rhett Alan. COMPLICATIONS: None identified. PROCEDURE INFORMATION: After the risks and benefits were explained, written and verbal informed consent was obtained. The patient was brought into the endoscopy suite and placed into the left lateral decubitus position. Sedation was achieved using the above-stated medications with the addition of oxygen via nasal cannula. The scope was introduced into the mouth through the bite block, and advanced under direct visualization through the oropharynx, esophagus, and down into the stomach. There was a large food bezoar present. We easily went on past this with the endoscope through the pylorus and into the second portion of the duodenum. The scope was slowly withdrawn to carefully examine the mucosa for any defects or lesions. Retroflexed views were accomplished. We broke up as much of the bezoar as seemed reasonable at that time with the Jumbo snare. The stomach was then decompressed, the scope removed from the patient who tolerated the procedure well. Because she had not had a successful bowel prep, we did not swap out scopes. Digital exam revealed a little further, solid stool debris. We cleaned this up and then pursued digital rectal examination. No significant pathology was appreciated. The endoscope was introduced into the rectum and we had a reasonably surprisingly clean distal GI tract (the patient had received two Fleet enemas in our department prior to our attempts here today). We however arrived at solid stool debris at about 45 cm from the anal verge. We administered another Fleet's enema directly through the scope into the bowel at around the splenic flexure region. The scope was then slowly withdrawn to carefully examine the mucosa. The bowel was decompressed. The scope removed from the patient who tolerated the procedure well. FINDINGS: 1. Duodenum: No significant pathology. No obstructing lesion evident. 2. Stomach: The pylorus appeared wide open. No ulcers, no mass lesions. No outlet obstruction. A moderate sized food bezoar was present and this was chopped up with the snare. Otherwise, no significant gastric pathology appreciated. 3. Esophagus: The squamocolumnar junction correlated with the top of the gastric folds. The GE junction was at about 37 cm from the incisors. No acute erosive changes. No strictures. No mass lesions. 4. Colon: Surprisingly clean distal colonic segment in the context of suboptimal bowel prep and Fleets enemas x2. Solid stool was encountered at about 45 cm and a 3rd Fleets was administered by way of the accessory channel of the scope. In the distal GI tract what we did see, we did not identify any significant polyps, mass lesions, or inflammatory features. ENDOSCOPIC DIAGNOSES: 1. Food bezoar. 2. Otherwise visually unremarkable esophagogastroduodenoscopy. 3. Poor bowel prep. RECOMMENDATIONS: 1. Continue efforts to reduce opiates over the long-term here. 2. Regular club soda. Hopefully the carbonation will help to assist in passing the retained gastric food debris. 3. Increased bowel regimen. I would recommend daily MiraLAX fiber supplementation as previously described in my notes. We will request authorization for Linzess. 4. Follow up in my office in about four weeks to review response. 5. Depending on the response, we can plan on repeat endoscopic interrogation to ensure all of the retained food debris has cleared and even consider a repeat attempt at colonoscopy.
== END | disposition home or self-care (01) ==
LOC: END 00:18
PROVIDERS: ATTEND Internal Medicine Gastroenterology
DX: K59.00 Constipation, unspecified (principal); T18.198A Other foreign object in esophagus causing other injury, initial encounter; R11.2 Nausea with vomiting, unspecified; I10 Essential (primary) hypertension; E78.5 Hyperlipidemia, unspecified; E03.9 Hypothyroidism, unspecified; I25.10 Atherosclerotic heart disease of native coronary artery without angina pectoris; E10.9 Type 1 diabetes mellitus without complications; I25.2 Old myocardial infarction; I25.5 Ischemic cardiomyopathy; G89.4 Chronic pain syndrome; Z79.891 Long term (current) use of opiate analgesic; F17.210 Nicotine dependence, cigarettes, uncomplicated; Z95.5 Presence of coronary angioplasty implant and graft; Z79.82 Long term (current) use of aspirin; Z79.4 Long term (current) use of insulin; Z79.51 Long term (current) use of inhaled steroids
CPT/HCPCS: 43247; 45330; J1815; J7120